=== PATIENT | female | born 1990 | race Caucasian/White ===

== ENCOUNTER 2021-05-12 20:34 | Emergency (ER) | payer OTHER ==
[~2021-05-12] VITALS: Ht 162.6 cm; Wt 86.2 kg
[2021-05-12] MEDS ORDERED: JUNEL1 EAC1 PO (20:54)
[2021-05-12] MEDS ORDERED: SUPER THERAVIT1 EACH PO (20:56)
[2021-05-12] MEDS ORDERED: ELDERBERRY-VIT1 EACH PO (20:56)
[2021-05-12 21:21] LABS: ABSOLUTE NEUTROPHILS 5.2 thou/uL (1.4-8.2); BASOPHILS 0.8 % (0.0-2.0); EOSINOPHILS 1.3 % (0.0-3.0); HEMATOCRIT 41.2 % (37.0-47.0); HEMOGLOBIN 13.5 gm/dL (12.0-15.0); LYMPHOCYTES 31.8 % (24.0-44.0); MCH 28.6 pg (26.0-34.0); MCHC 32.8 g/dL (28.0-37.0); MCV 87.2 fL (80.0-100.0); PLATELET COUNT 298 thou/uL (150-400); POLYS 57.1 % (36.0-66.0); RBC 4.72 mil/uL (4.20-5.00); RDW 13.8 % (10.5-14.5); WBC 9.2 thou/uL (4.0-11.0)
[2021-05-12 21:27] LABS: CALCIUM 8.9 mg/dL (8.5-10.1); CREATININE 0.9 mg/dL (0.6-1.0); POTASSIUM 3.4 mmol/L (3.5-5.1)
[2021-05-12 21:34] LABS: ALBUMIN 3.9 g/dL (3.4-5.0); TOTAL BILIRUBIN 0.3 mg/dL (0.2-1.0); TOTAL PROTEIN 7.6 g/dL (6.4-8.2)
[2021-05-12 22:46] VITALS: BP 130/74
--- NOTE | 2021-05-13 11:41 | EKG ---
[place] [address] [facility] [address] ELECTROCARDIOGRAM REPORT Name: AKANKSHA CHAN Room #: DEP [facility]#: [id number] Admission: 05/12/21 Attend Phys: Discharge: 05/12/21 Date of : [birth year] Report #: [id number] [facility] ED Test Date: 2021-05-12 Test Time: 21:04:15 Pat Name: AKANKSHA CHAN Department: Room: Gender: F Workforce Specialist: anthony : 1990 Requested By: Juan David Gunn Order Number: [id number] MD: Doug Lynn Measurements Intervals [place] Rate: 108 P: 69 SD: 157 QRS: 72 QRSD: 107 T: 21 QT: 342 QTc: 459 Interpretive Statements Sinus tachycardia Left atrial enlargement Abnormal Q suggests anterior infarct Anteroseptal infarct, age indeterminate No previous ECG available for comparison Electronically Signed On 05-13-2021 11:41:10 CDT by Doug Lynn [email or web address] <ELECTRONICALLY SIGNED> By: Doug Lynn MD, [facility] 05/13/21 1141 2104 2104 Doug Lynn MD, FACC /EPI
== END 2021-05-12 23:23 | disposition home or self-care (01) ==
LOC: ER 20:34
PROVIDERS: Emergency Medicine
DX: I73.00 Raynaud's syndrome without gangrene (principal); F41.9 Anxiety disorder, unspecified; R20.2 Paresthesia of skin; R00.0 Tachycardia, unspecified; Z79.899 Other long term (current) drug therapy; Z91.09 Other allergy status, other than to drugs and biological substances

== ENCOUNTER 2021-05-17 | Emergency (ER) | payer OTHER ==
[~2021-05-17] VITALS: Ht 165.1 cm; Wt 86.2 kg
[~2021-05-17] MED LIST: ELDERBERRY-VIT1 EACH PO; JUNEL1 EAC1 PO; SUPER THERAVIT1 EACH PO
[2021-05-17 03:21] LABS: URINE BILIRUBIN NEGATIVE (Negative); URINE BLOOD NEGATIVE (Negative); URINE CLARITY CLEAR; URINE COLOR YELLOW; URINE GLUCOSE-RANDOM* NEGATIVE (Negative); URINE KETONES NEGATIVE (Negative); URINE NITRITE-REFLEX NEGATIVE (Negative); URINE PROTEIN (DIPSTICK) NEGATIVE (Negative); URINE UROBILINOGEN 0.2 E.U./dl (0.2-1.0)
[2021-05-17 03:27] LABS: URINE LEUKOCYTES-REFLEX 1+ (Negative)
[2021-05-17 03:33] LABS: BACTERIA-REFLEX 1-9 Few /HPF (None Seen); CASTS None Seen /LPF (None Seen); CRYSTALS None Seen /LPF (None Seen); MUCUS 0-3 Light strn/LPF (None Seen); SQUAMOUS 4-10 Moderate /LPF (0-3); URINE RBC 1-2 Rare /HPF (NONE SEEN); URINE WBC-REFLEX 6-15 Few /HPF (0-5)
[2021-05-17] MEDS ORDERED: FLEXERIL PO (03:47)
[2021-05-17 04:02] VITALS: BP 152/99
--- NOTE | 2021-05-17 07:40 | EKG ---
[facility] [place] [address] ELECTROCARDIOGRAM REPORT Name: AKANKSHA CHAN Room #: [facility]#: [id number] Admission: 05/17/21 Attend Phys: Discharge: 05/17/21 Date of : [birth year] Report #: [id number] 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 : 1990 Requested By: Harley Silva Order Number: [id number] MD: Doug Lynn Measurements Intervals [place] Rate: 96 P: 35 MT: 127 QRS: 71 QRSD: 112 T: 32 QT: 335 QTc: 424 Interpretive Statements Sinus rhythm Probable left atrial enlargement Incomplete right bundle branch block Compared to ECG 05/12/2021 21:04:15 Incomplete right bundle-branch block now present Sinus tachycardia no longer present Myocardial infarct finding no longer present Electronically Signed On 05-17-2021 7:40:14 CDT by Doug Lynn [email or web address] <ELECTRONICALLY SIGNED> By: Doug Lynn MD, [facility] 05/17/21 0740 0249 0249 Doug Lynn MD, FAC /EPI
== END 2021-05-17 04:03 | disposition home or self-care (01) ==
LOC: ER
PROVIDERS: Emergency Medicine
DX: R10.9 Unspecified abdominal pain (principal); Z79.899 Other long term (current) drug therapy; Z88.5 Allergy status to narcotic agent